=== PATIENT | male | born 1950 | race African-American/Black ===

== ENCOUNTER 2017-11-02 03:50 | Emergency (ER) | payer BC, MEDICARE ==
[~2017-11-02] VITALS: Ht 160 cm; Wt 56.0 kg
[2017-11-02] MEDS ORDERED: ASPIRIN 81MG TABLET PO ONE (05:00)
[2017-11-02 05:01] LABS: BASOPHILS % 0.7 % (0.0-2.0); EOSINOPHILS % 9.3 % (0.0-5.0); HEMATOCRIT. 41.5 % (42.0-52.0); HEMOGLOBIN. 14.2 g/dL (14.0-18.0); LYMPHOCYTES % 29.1 % (20.0-50.0); MEAN CORPUSCULAR HEMOGLOBIN 31.1 pg (28.0-32.0); MEAN CORPUSCULAR VOLUME 90.8 fL (80.0-94.0); MEAN PLATELET VOLUME 7.9 fl (7.4-10.4); MONOCYTES % 8.2 % (2.0-8.0); NEUTROPHILS % 52.7 % (40.0-76.0); PLATELET 241 x1000/uL (130-400); RED BLOOD CELL COUNT 4.57 mill/uL (4.7-6.1); RED CELL DISTRIBUTION WIDTH 14.2 % (11.6-14.6)
[2017-11-02 05:08] LABS: CHLORIDE 109 mEq/L (98-107)
[2017-11-02 05:16] LABS: PARTIAL THROMBOPLASTIN TIME 26.8 sec (23.4-31.0); PROTHROMBIN TIME 10.4 sec (9.4-11.6)
[2017-11-02 05:29] LABS: CLARITY URINE CLEAR (CLEAR); COLOR URINE YELLOW (YELLOW); KETONES URINE NEGATIVE (NEGATIVE); LEUKOCYTE ESTERASE URINE NEGATIVE (NEGATIVE); NITRITE URINE NEGATIVE (NEGATIVE); OCCULT BLOOD URINE 1+ (NEGATIVE); PROTEIN URINE NEGATIVE (NEGATIVE); SPECIFIC GRAVITY URINE 1.018 (1.005-1.030); UROBILINOGEN URINE 0.2 E.U./dL (0.2-1.0)
[2017-11-02 09:55] VITALS: BP 141/80
== END 2017-11-02 10:01 | disposition home or self-care (01) ==
LOC: ER 03:50
DX: R07.89 Other chest pain (principal); M25.531 Pain in right wrist; M25.532 Pain in left wrist; M79.641 Pain in right hand; M79.644 Pain in right finger(s); R68.84 Jaw pain; R73.9 Hyperglycemia, unspecified; W10.9XXA Fall (on) (from) unspecified stairs and steps, initial encounter; Y93.89 Activity, other specified; Y92.89 Other specified places as the place of occurrence of the external cause; R03.0 Elevated blood-pressure reading, without diagnosis of hypertension
CPT/HCPCS: 36415; 71045; 73130; 80053; 81003; 83880; 84484; 85025; 85610; 85730; 93005; 99285